=== PATIENT | male | born 1945 | race Asian ===

== ENCOUNTER 2020-07-22 11:39 | Day surgery (SDC) | payer OTHER ==
[2020-07-21 17:03] LABS: Absolute Lymphocytes (CBC) 1.4 K/uL (0.7-4.9); Basophils % 0.7 % (0-1.3); Hematocrit 41.4 % (39.6-49.0); Lymphocytes % 25.6 % (15.3-44.8); RBC Red Blood Cell Count 4.84 M/uL (4.33-5.43)
--- NOTE | 2020-07-21 17:07 | RAD REPORT ---
EXAM DESCRIPTION: RAD - Chest Pa And Lat (2 Views) - 07/21/2020 5:01 pm CLINICAL HISTORY: pre op Chest pain. COMPARISON: Chest Pa And Lat (2 Views) dated 08/15/2019; Chest Pa And Lat (2 Views) dated 07/15/2016; C hest Pa And Lat (2 Views) dated 04/26/2016; CHEST PA AND LAT 2 VIEW dated 11/20/2010 FINDINGS: Small calcified granuloma is seen in the left mid lung. The lungs are otherwise clear. The heart is normal in size. No displaced fractures. IMPRESSION: No acute or concerning finding suspected.
[2020-07-21 17:14] LABS: Potassium 4.7 mmol/L (3.5-5.1)
[2020-07-22] MEDS ORDERED: LIDOCAINE 2% MPF 5 ML VIAL ONE (12:04)
[2020-07-22] MEDS ORDERED: FENTANYL CITR 100 MCG/2 ML ONE (12:04)
[2020-07-22] MEDS ORDERED: propofoL 200 MG/20 ML VIAL IV ONE (12:04)
[2020-07-22] MEDS ORDERED: ONDANSETRON 4 MG/2 ML VIAL ONE (12:05)
[2020-07-22] MEDS ORDERED: Ringers Lactate 1,000 ML IV ONE (12:14)
[2020-07-22] MEDS ORDERED: CEFAZOLIN/SWI 1gm 1 GM/10 ML SYR ONE (12:14)
[2020-07-22] MEDS ORDERED: Phenylephrine HCl 10 MG/ML 1 ML VIAL ONE (13:27)
[2020-07-22] MEDS ORDERED: NS 0.9% VIAL 20 ML ONE (13:28)
[2020-07-22] MEDS ORDERED: KETOROLAC 30 MG/ML INJ ONE (13:52)
[2020-07-22 14:01] VITALS: O2SAT 100
--- NOTE | 2020-07-22 14:19 | P.BOP ---
Preoperative diagnosis: Perianal abscess, non healing wound Postoperative diagnosis: same Primary procedure: EUA, anoscopy, rigid proctoscopy, fistulectomy Secondary procedure: incision and drainage of perianal abscess Estimated blood loss: <10cc Specimen: fistula tract bx Findings: posterior fistula with abscess Anesthesia: General Complications: None Transferred to: Recovery Room Condition: Good
[2020-07-22] MEDS ORDERED: CODEINE 30MG/APAP 300MG TAB ONE (15:09)
[2020-07-22 15:54] VITALS: BP 128/57; TEMP 97
--- NOTE | 2020-07-23 05:55 | EKG ---
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
--- NOTE | 2020-07-28 10:42 | OP ---
Date of Procedure: 07/22/2020 Surgeon: Toño Jean Baptiste MD Preoperative Diagnoses: Perianal abscess, nonhealing wound in perianal region. Postoperative Diagnoses: Perianal abscess, nonhealing wound in perianal region. Procedures: Examination under anesthesia, anoscopy, rigid proctoscopy, fistulectomy, incision and dr makenzie of perianal abscess. Estimated Blood Loss: Less than 10 mL. Specimens: Fistula tract biopsy. Findings: Posterior fistula with abscess. Anesthesia: General plus local. Indications: This is the case of a male, who comes to us with tender perianal wound with abscess cav ity present. The etiology of that is unknown. He does not recall any trauma. The benefits, alterna tives, and risks of EUA, anoscopy, proctoscopy, incision and drainage of perianal abscess, possible f istulectomy were fully explained to the patient which include, but not limited to infection, bleeding , damage to adjacent structures, anesthesia complication, nonhealing wound, VA, and even . He a lso understands this may not relieve any symptoms. He might need more than one surgical intervention . He may require wound care. He signed the consent. Description Of Procedure: The patient was brought to the operating room and placed in supine positio n. Anesthesia was done without complication. The patient was placed in lithotomy position with prop er protection. A time-out was called. The area was prepped and draped in a sterile fashion. Once a gain, rectal examination was done followed by rigid proctoscopy all the way to about 13 cm. We notic ed the patient to have some perianal abscess. There is an open wound already there draining pus, lar ge cavity. We removed the proctoscope and with the anoscope, we were able to visualize that the trac t of this connecting to the mid rectum region away from the sphincter complex fistula. It is associa jo-ann with an abscess, difficult time to visualize the area completely due to the amount of pus, so we drained all the pus from that area, drained the perianal abscess and the fistula tract that go into t he rectum. We just carefully removed the fistula tract from that area. Pus sent for culture. This patient eventually may need another evaluation of that area once the inflammation and the abscess is gone to visualize the area a little bit better if residual fistula or anything else we have to do. I f we opened the fistula at this moment completely through the sphincter, most likely he is going to d evelop incontinence, so we have to take care of infection and remove the fistula tract and hopefully that gave us to a point that we can continue the workup on this patient. The patient tolerated the p rocedure well. The area was packed with dry dressing. The patient was sent to Recovery in stable co ndition. Disposition: Home. Plan: The patient will come to my office tomorrow for dressing changes. Medications: See orders. JOHN/MODL Voice ID: [id number] Report ID: [id number]
== END 2020-07-22 15:25 | disposition home or self-care (01) ==
LOC: OR 11:39
PROVIDERS: ATTEND Surgery
PROC: 0DJD8ZZ Inspection of Lower Intestinal Tract, Via Natural or Artificial Opening Endoscopic (ICD-10-PCS; 2020-07-22)
PROC: 0DBQ0ZZ Excision of Anus, Open Approach (ICD-10-PCS; 2020-07-22)
PROC: 0D9Q7ZX Drainage of Anus, Via Natural or Artificial Opening, Diagnostic (ICD-10-PCS; principal; 2020-07-22 12:30)
DX: K61.0 Anal abscess (principal); S31.839A Unspecified open wound of anus, initial encounter; I10 Essential (primary) hypertension; E78.5 Hyperlipidemia, unspecified; Z20.828 Contact with and (suspected) exposure to other viral communicable diseases
CPT/HCPCS: 93005; 85025; 80048; 36415; 88304; 71046; 46050; 45300; 46270; U0002; J2704; J2370; J3010; J0690; J7120; J2405; 88305

== ENCOUNTER 2021-09-21 10:29 | Inpatient (IN) | payer OTHER ==
[2021-09-21] MEDS ORDERED: ASPIRIN 81 MG CHEWABLE TABLET ONE (10:45)
[2021-09-21] MEDS ORDERED: HEPARIN/D5W 25,000 UNIT/500 ML BAG IV ONE (10:52)
[2021-09-21] MEDS ORDERED: HEPARIN 5000 UNIT/ML 1 ML VIAL ONE ×2 (10:59→13:19)
[2021-09-21 11:05] LABS: Absolute Lymphocytes (CBC) 1.5 K/uL (0.7-4.9); Basophils % 0.5 % (0-1.3); Hematocrit 40.8 % (39.6-49.0); Lymphocytes % 14.8 % (15.3-44.8); MPV 8.7 fL (7.6-11.3); RBC Red Blood Cell Count 4.81 M/uL (4.33-5.43)
[2021-09-21 11:06] LABS: Protime INR 1.03
[2021-09-21 11:23] LABS: Albumin 3.7 g/dL (3.4-5.0); Bilirubin Direct 0.1 mg/dL (0-0.2); Bilirubin Total 0.5 mg/dL (0.2-1.0); Magnesium 2.4 mg/dL (1.8-2.4); Potassium 4.5 mmol/L (3.5-5.1); Protein, Total 7.9 g/dL (6.4-8.2)
--- NOTE | 2021-09-21 11:34 | RAD REPORT ---
EXAM DESCRIPTION: RAD - Chest Single View - 09/21/2021 11:18 am CLINICAL HISTORY: CHEST PAIN COMPARISON: Chest Pa And Lat (2 Views) dated 07/21/2020; Chest Pa And Lat (2 Views) dated 08/15/2019; Chest Pa And Lat (2 Views) dated 07/15/2016; Chest Pa And Lat (2 Views) dated 04/26/2016 FINDINGS: Lines: None. Lungs: No evidence of edema or pneumonia. Pleural: No significant pleural effusions or pneumothorax. Cardiac: The heart size is within normal limits. Bones: No acute fractures. Other: IMPRESSION: No acute cardiopulmonary disease.
[2021-09-21 11:39] LABS: Troponin (Emerg Dept Use Only) 26.8 ng/mL (0.0-0.045)
[2021-09-21 12:03] LABS: Blood Morphology Comment NOT SEEN (NOT SEEN); Platelet Estimate ADEQ; White Blood Cell Scan OK (OK)
--- NOTE | 2021-09-21 12:07 | EDPHYS ---
Physician Documentation [facility] Name: Ihsan Lima Age: 76 yrs Sex: Male : 1945 Arrival Date: 09/21/2021 Time: 10:29 Bed 3 Private MD: Sd Snyder R ED Physician Du Eaton HPI: 09/21 12:01 This 76 yrs old Male presents to ER via Ambulatory with complaints of abn ekg. jr8 12:01 The patient or guardian reports chest pain that is located primarily in the substernal jr8 area, epigastric area. Onset: acutely, yesterday. The pain does not radiate. Associated signs and symptoms: The patient has no apparent associated signs or symptoms. The chest pain is described as burning, causing indigestion. Severity of pain: At its worst the pain was mild in the emergency department the pain has resolved. The patient has not experienced similar symptoms in the past. The patient has been recently seen by a physician:. This is a 76-year-old male patient that presented to the emergency room after seeing his primary care physician today for epigastric like indigestion with reflux sensation. Patient stated that it started yesterday and has now subsided since this morning. Called his PCP yesterday and worked him into the schedule this morning. EKG was done at that time showing inferior wall changes. Was sent to the emergency room for further evaluation at that time. Patient currently hemodynamically stable and without pain.. Historical: - Allergies: 10:38 No Known Allergies; tw2 - Home Meds: 10:38 Lipitor Oral [Active]; telmisartan oral [Active]; tw2 - PMHx: 10:38 Hypertensive disorder; Hypercholesterolemia; tw2 - Immunization history:: Client reports receiving the 2nd dose of the Covid vaccine. - Social history:: Smoking status: . ROS: 12:01 Eyes: Negative for injury, pain, redness, and discharge, ENT: Negative for injury, jr8 pain, and discharge, Neck: Negative for injury, pain, and swelling, Respiratory: Negative for shortness of breath, cough, wheezing, and pleuritic chest pain, Abdomen/GI: Negative for abdominal pain, nausea, vomiting, diarrhea, and constipation, Back: Negative for injury and pain, MS/Extremity: Negative for injury and deformity, Skin: Negative for injury, rash, and discoloration, Neuro: Negative for headache, weakness, numbness, tingling, and seizure. 12:01 Cardiovascular: Positive for chest pain, Negative for edema, orthopnea, palpitations, paroxysmal nocturnal dyspnea. Exam: 10:46 Constitutional: This is a well developed, well nourished patient who is awake, alert, jr8 and in no acute distress. Neck: Trachea midline, no thyromegaly or masses palpated, and no cervical lymphadenopathy. Supple, full range of motion without nuchal rigidity, or vertebral point tenderness. No Meningismus. Chest/axilla: Normal chest wall appearance and motion. Nontender with no deformity. No lesions are appreciated. Cardiovascular: Regular rate and rhythm with a normal S1 and S2. No gallops, murmurs, or rubs. Normal PMI, no JVD. No pulse deficits. Respiratory: Lungs have equal breath sounds bilaterally, clear to auscultation and percussion. No rales, rhonchi or wheezes noted. No increased work of breathing, no retractions or nasal flaring. Abdomen/GI: Soft, non-tender, with normal bowel sounds. No distension or tympany. No guarding or rebound. No evidence of tenderness throughout. Back: No spinal tenderness. No costovertebral tenderness. Full range of motion. Skin: Warm, dry with normal turgor. Normal color with no rashes, no lesions, and no evidence of cellulitis. MS/ Extremity: Pulses equal, no cyanosis. Neurovascular intact. Full, normal range of motion. Neuro: Awake and alert, GCS 15, oriented to person, place, time, and situation. Cranial nerves II-XII grossly intact. Motor strength 5/5 in all extremities. Sensory grossly intact. 10:46 ECG was reviewed by the Attending Physician. Vital Signs: 10:34 BP 142 / 71; Pulse 85; Resp 17; Temp 97.0(TE); Pulse Ox 100% on R/A; Weight 74.84 kg tw2 (R); 11:01 BP 123 / 66; Pulse 76; Resp 15; Pulse Ox 100% ; Weight 75.1 kg (M); jl7 11:30 BP 134 / 70; Pulse 78; Resp 18 S; Pulse Ox 100% on R/A; Pain 0/10; as6 12:08 BP 135 / 72; Pulse 86; Resp 20 S; Pulse Ox 100% on R/A; as6 12:41 BP 127 / 79; Pulse 83; Resp 17; Pulse Ox 99% ; jl7 MDM: 10:40 Patient medically screened. jr8 10:48 ED course: Call to cardiology placed at 1043. Cardiology in [place] [facility] at this time and jr8 pending callback.. 12:00 ED course: Will be going to [place] [facility] in approximately 45 minutes.. jr8 12:01 The patient was given aspirin in the Emergency Department. Data reviewed: vital signs, 8 nurses notes, lab test result(s), EKG, radiologic studies, plain films. Data interpreted: Pulse oximetry: on room air is 100 %. Interpretation: normal. Counseling: I had a detailed discussion with the patient and/or guardian regarding: the historical points, exam findings, and any diagnostic results supporting the discharge/admit diagnosis, lab results, radiology results, the need for further work-up and treatment in the hospital. 09/21 10:41 Order name: Basic Metabolic Panel; Complete Time: 12:06 09/21 10:41 Order name: CBC with Diff; Complete Time: 12:06 09/21 10:41 Order name: LFT's; Complete Time: 12:06 09/21 10:41 Order name: Magnesium; Complete Time: 12:06 09/21 10:41 Order name: NT PRO-BNP; Complete Time: 12:06 09/21 10:41 Order name: PT-INR; Complete Time: 11:21 09/21 10:41 Order name: Troponin (emerg Dept Use Only); Complete Time: 12:06 09/21 10:41 Order name: XRAY Chest (1 view); Complete Time: 11:34 09/21 10:41 Order name: EKG; Complete Time: 10:41 09/21 10:57 Order name: COVID-19 (Coronavirus) Document "Date of Onset" if Symptomatic jl7 09/21 12:03 Order name: CBC Smear Scan EDKY 09/21 10:41 Order name: Cardiac monitoring; Complete Time: 10:56 09/21 10:41 Order name: EKG - Nurse/Tech; Complete Time: 10:56 09/21 10:41 Order name: IV Saline Lock; Complete Time: 10:09/21 10:41 Order name: Labs collected and sent; Complete Time: 09/21 10:41 Order name: O2 Per Protocol; Complete Time: :09/21 10:41 Order name: O2 Sat Monitoring; Complete Time: :09/21 12:29 Order name: CONS Physician Consult EDMS EC:46 Rate is 84 beats/min. Rhythm is regular, Normal Sinus Rhythm. QRS [place] is Normal. [place] jr8 interval is prolonged at 208 msec. QRS interval is normal at 86 msec. QT interval is normal at 380 msec. Q waves are Present. Q waves are New in leads III, aVF. T waves are Normal. ST Segment is elevated in leads III, aVF. Clinical impression: Inferior AL - acute. Interpreted by me. Reviewed by me. Administered Medications: 10:47 Drug: Aspirin Chewable Tablet 243 mg Route: PO; as6 11:47 Follow up: Response: No adverse reaction as6 11:04 Drug: Heparin (AL-Bolus No thrombolytic) - HEParin 60 units/kg {Co-Signature: jcarolyn as6 (Patrick Mcdonald RN).} Route: IVP; Site: left wrist; 12:04 Follow up: Response: No adverse reaction as6 11:04 Drug: Heparin ([place] Drip) 12 units/kg/hr - (HEParin 52373 units, D5W 500 ml) as6 {Co-Signature: jd3 (Patrick Mcdonald RN).} Route: IV; Rate: calculated rate; Site: left wrist; 12:19 Follow up: IV Pause: 09/21/2021 12:19; IV Pause Reason: Limited IV access/Medication as6 interaction; infusion paused due to pt about to go to [employer] [place] Disposition: 12:10 Critical Care:. 8 15:24 Co-signature as Attending Physician, Du Eaton MD I agree with the assessment and rn plan of care. 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 HPI: 76 year old male presents with heart burn and sent by PCP for possible AL. Reports heartburn on and off for sometime, but not worse with exertion or climbing stairs. My personal exam of patient reveals: calm, no acute distress, no cyanosis, RRR I agree with assessment and care plan and confirm the diagnosis (es) above. Disposition Summary: 09/21/21 12:06 Hospitalization Ordered Hospitalization Status: Inpatient Admission jr8 Location: Telemetry/[facility] (Inpatient) jr8 Condition: Stable jr8 Problem: new jr8 Symptoms: are unchanged jr8 Bed/Room Type: Standard 8 Room Assignment: 8 Provider: Dominik Eaton(09/21/21 12:06) jr8 Diagnosis - ST elevation (STEMI) myocardial infarction of inferior wall jr8 Forms: - Medication Reconciliation Form jr8 - SBAR form jr8 Critical care time excluding procedures: 12:10 Critical care time: Bedside Care: 20 minutes, Consultation: 10 minutes, Family jr8 Intervention: 10 minutes. Total time: 40 minutes Signatures: Dispatcher [employer] EDMS Du Eaton MD MD rn Roszak, Josh, PA PA jr8 Kristen Spencer RN RN tw2 Mohan Charles RN RN as6 Patrick Mcdonald RN jd3 Corrections: (The following items were deleted from the chart) 12:06 12:06 Tiara De Leon jr8 jr8
--- NOTE | 2021-09-21 12:07 | ER ---
Nurse's Notes [facility] Name: Ihsan Lima Age: 76 yrs Sex: Male : 1945 Arrival Date: 09/21/2021 Time: 10:29 Bed 3 Private MD: Sd Snyder R Diagnosis: ST elevation (STEMI) myocardial infarction of inferior wall Presentation: 09/21 10:34 Initial Sepsis Screen: Does the patient meet any 2 criteria? No. Patient's initial tw2 sepsis screen is negative. Does the patient have a suspected source of infection? No. Patient's initial sepsis screen is negative. Risk Assessment: Do you want to hurt yourself or someone else? Patient reports no desire to harm self or others. Note provider IZABEL Linares at bedside at this time. Onset of symptoms was September 21, 2021. 10:34 Acuity: DOMINIC 2 tw2 10:36 Chief complaint: Patient states: Dr. Snyder sent me over here because I had an abnormal tw2 EKG. i was having heartburn for a couple of weeks. no pain now. Dr. Snyder wants to verify if I did have a heart attack or not. Coronavirus screen: At this time, the client does not indicate any symptoms associated with coronavirus-19. Ebola Screen: Patient denies travel to an Ebola-affected area in the 21 days before illness onset. 10:36 Method Of Arrival: Ambulatory tw2 Triage Assessment: 10:34 General: Appears in no apparent distress. slender, well groomed, Behavior is calm, tw2 cooperative, appropriate for age. Pain: Denies pain. Historical: - Allergies: 10:38 No Known Allergies; tw2 - Home Meds: 10:38 Lipitor Oral [Active]; telmisartan oral [Active]; tw2 - PMHx: 10:38 Hypertensive disorder; Hypercholesterolemia; tw2 - Immunization history:: Client reports receiving the 2nd dose of the Covid vaccine. - Social history:: Smoking status: . Screenin:34 Abuse screen: Denies threats or abuse. Nutritional screening: No deficits noted. tw2 Tuberculosis screening: No symptoms or risk factors identified. Fall Risk None identified. Assessment: 10:35 Reassessment: IZABEL Brown at bedside. jl7 10:45 Reassessment: Dr. Eaton at bedside discussing EKG result and POC. jl7 11:00 General: Appears in no apparent distress. comfortable, Behavior is calm, cooperative. as6 Pain: Denies pain. Neuro: Level of Consciousness is awake, alert, obeys commands, Oriented to person, place, time, situation. Cardiovascular: Capillary refill < 3 seconds Patient's skin is warm and dry. Rhythm is irregular noted ST elevation, provided notified. Respiratory: Airway is patent Respiratory effort is even, unlabored, Respiratory pattern is regular, symmetrical, Breath sounds are clear bilaterally. Derm: Skin is intact, is healthy with good turgor. 12:09 Reassessment: pt and educated on procedure done by IZABEL Brown. as6 Vital Signs: 10:34 BP 142 / 71; Pulse 85; Resp 17; Temp 97.0(TE); Pulse Ox 100% on R/A; Weight 74.84 kg tw2 (R); 11:01 BP 123 / 66; Pulse 76; Resp 15; Pulse Ox 100% ; Weight 75.1 kg (M); jl7 11:30 BP 134 / 70; Pulse 78; Resp 18 S; Pulse Ox 100% on R/A; Pain 0/10; as6 12:08 BP 135 / 72; Pulse 86; Resp 20 S; Pulse Ox 100% on R/A; as6 12:41 BP 127 / 79; Pulse 83; Resp 17; Pulse Ox 99% ; jl7 ED Course: 10:29 Patient arrived in ED. as 10:30 Sd Snyder MD is Private Physician. as 10:33 EKG done, by ED staff, reviewed by Du Eaton MD. mh5 10:34 Patient has correct armband on for positive identification. Placed in gown. Bed in low mh5 position. Call light in reach. Side rails up X 1. Side rails up X2. Warm blanket given. monitoring and evaluation advisor on. Pulse ox on. NIBP on. 10:34 Arm band placed on. tw2 10:38 Triage completed. tw2 10:40 Kevin Richmond PA is PHCP. jr8 10:40 Du Eaton MD is Attending Physician. jr8 10:50 Inserted saline lock: 20 gauge in right wrist, using aseptic technique. jl7 10:55 Initial lab(s) drawn, by nv, sent to lab. Inserted saline lock: 22 gauge in left jl7 forearm, using aseptic technique. Blood collected. 11:00 Mohan Charles, JONNY is Primary Nurse. jl7 11:18 XRAY Chest (1 view) In Process Unspecified. EDMS 12:03 Tiara De Leon MD is Hospitalizing Provider. jr8 12:06 Dominik Eaton MD is Hospitalizing Provider. jr8 13:07 No provider procedures requiring assistance completed. Patient admitted, IV remains in jl7 place. intact, No redness/swelling at site. Administered Medications: 10:47 Drug: Aspirin Chewable Tablet 243 mg Route: PO; as6 11:47 Follow up: Response: No adverse reaction as6 11:04 Drug: Heparin (AK-Bolus No thrombolytic) - HEParin 60 units/kg {Co-Signature: thu as6 (Patrick Mcdonald RN).} Route: IVP; Site: left wrist; 12:04 Follow up: Response: No adverse reaction as6 11:04 Drug: Heparin ([place] Drip) 12 units/kg/hr - (HEParin 75686 units, D5W 500 ml) as6 {Co-Signature: thu (Patrick Mcdonald RN).} Route: IV; Rate: calculated rate; Site: left wrist; 12:19 Follow up: IV Pause: 09/21/2021 12:19; IV Pause Reason: Limited IV access/Medication as6 interaction; 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 jr8 13:07 Admitted to [employer] accompanied by nurse, family with patient, via stretcher, on jl7 monitor, with chart, Other Bedside report given to JONNY [place] 13:07 Condition: stable 13:07 Discharge instructions given to patient, family, Instructed on the need for admit, Demonstrated understanding of instructions. 13:11 Patient left the ED. jl7 Signatures: Dispatcher [employer] EDMS Le Jean Baptiste Josh, PA PA jr8 Kristen Spencer, RN RN tw2 Sydney Jean Baptiste [facility] Alonzo De La Paz RN RN jl7 Mohan Charles, JONNY FULLER as6 Patrick Mcdonald RN jd3
--- NOTE | 2021-09-21 12:36 | P.HP ---
Certification for Inpatient Patient admitted to: Inpatient With expected LOS: >2 Midnights Practitioner: I am a practitioner with admitting privileges, knowledge of patient current condition, hospital course, and medical plan of care. Services: Services provided to patient in accordance with Admission requirements found in Title 42 Section 412.3 of the Code of Federal Regulations Patient History Date of Service: 09/21/21 Primary Care Provider: Lillian Reason for admission: STEMI History of Present Illness: 76yo M, PMH: HTN, HLD, constipation Sent to the ED by his PCP due to concern for [place]. Patient reports progressively worsening heartburn over the last 2 months. This became much more severe 2 days ago, and he was having difficulty sleeping due to the discomfort. Nothing seemed to alleviate or worsen the pain. He saw his PCP today, was noted to have some q waves and mild ST elevation in inferior leads. In the ED, lab work seem to be at patient's baseline, and he was noted to have elevated troponin 20s. Cardiology was consulted by the ER, plan to take patient for cardiac catheterization WHITNEY. He has otherwise been unable to take Prilosec yesterday and had some sweating. He otherwise denies any fever, no nausea/vomiting, no abdominal pain, no diarrhea/constipation, no change in urinary habits, no numbness/tingling. Allergies No Known Allergies Allergy (Unverified 07/21/20 16:22) Home Medications: Aspirin 81 mg PO DAILY 07/21/20 Atorvastatin Calcium [Lipitor] 10 mg PO DAILY 07/21/20 Telmisartan [Micardis] 40 mg PO DAILY 07/21/20 Ciprofloxacin HCl [Cipro 500 MG Tablet] 500 mg PO BID #14 tab 07/22/20 Codeine/APAP [Tylenol W/Codeine #3 tab] 1 tab PO Q4HP PRN #30 tab 07/22/20 - Past Medical/Surgical History Diabetic: No -: Hypertension -: Hyperlipidemia -: Constipation -: Anal fistula repair - Family History Father -: Stroke - Social History Smoking Status: Never smoker Alcohol use: Yes Place of Residence: Home Review of Systems 10-point ROS is otherwise unremarkable Physical Examination - Physical Exam General: Alert, In no apparent distress, Oriented x3 HEENT: PERRLA, Mucous membr. moist/pink, EOMI, Sclerae nonicteric Neck: Supple, No LAD Respiratory: Clear to auscultation bilaterally, Normal air movement Cardiovascular: No edema, Regular rate/rhythm Gastrointestinal: Soft and benign, Non-distended, No tenderness Musculoskeletal: No erythema, No tenderness Integumentary: No significant lesion Neurological: Normal speech, Normal strength at 5/5 x4 extr, Normal affect - Studies Laboratory Data (last 24 hrs) 09/21/21 10:53: PT 11.9, INR 1.03 09/21/21 10:53: WBC 10.40, Hgb 13.4 L, Hct 40.8, Plt Count 235 09/21/21 10:53: Sodium 139, Potassium 4.5, BUN 11, Creatinine 1.32 H, Glucose 114 H, Magnesium 2.4, Total Bilirubin 0.5, AST 191 H, ALT 57, Alkaline Phosphatase 96 Assessment and Plan - Advance Directives Does patient have a Living Will: No Does patient have a Durable POA for Healthcare: No Physician Review Additional Text: Problem list STEMI Hypertension Hyperlipidemia Functional constipation -EKG with inferior wall ischemic changes, q waves and mild ST elevation in inferior leads -cardiology consulted in ED, received aspirin and started heparin drip -patient to go to cardiac cath within the hour -statin ordered -repeat BMP in AM, monitor renal function -consult nephrology due to renal function and undergoing cardiac cath -f/u cath results / further cardiology recommendations VTE: heparin ggt Code: full Dispo: cardiac cath today, anticipate dc home in 1-2 days Time Spent Managing Pts Care (In Minutes): 60
[2021-09-21] MEDS ORDERED: HEPA 1000U/500MLS 2,000 UNIT/1,000 ML BAG IV ONE (12:54)
[2021-09-21] MEDS ORDERED: HEPARIN/D5W 25,000 UNIT/500 ML BAG IV SCH (13:00)
[2021-09-21] MEDS ORDERED: VERAPAMIL HCL 10 MG/4 ML VIAL IV ONE (13:18)
[2021-09-21] MEDS ORDERED: FENTANYL CITR 100 MCG/2 ML ONE (13:18)
[2021-09-21] MEDS ORDERED: MIDAZOLAM HCL 2 MG/2 ML INJ ONE (13:18)
[2021-09-21] MEDS ORDERED: ATROPINE SULF 1 MG/10 ML SYR IV ONE (13:19)
[2021-09-21] MEDS ORDERED: NA CHLORIDE 0.9% 500 ML ONE (13:20)
[2021-09-21] MEDS ORDERED: NITROGLYCERIN 100 MCG/ML SYR (for cath lab use only) IV ONE (13:20)
[2021-09-21] MEDS ORDERED: TICAGRELOR 90 MG TABLET PO ONE (13:40)
[2021-09-21] MEDS ORDERED: HEPA 1000U/500MLS 1,000 UNIT/500 ML BAG IV ONE (13:49)
[2021-09-21] MEDS ORDERED: ONDANSETRON 4 MG/2 ML VIAL IV PRN (16:08)
--- NOTE | 2021-09-21 20:31 | CON ---
Date of Consultation: 09/21/2021 Reason For Consultation: Elevated troponin and chest pain. History Of Present Illness: This is a 76-year-old male with history of hypertension, dyslipidemia, p resented with heartburn sensation started yesterday. He called his primary care physician, asked him to come to the emergency room. He came in this morning and found to have ST elevation in inferior l farshad plus Q-waves and the troponin was 26. The patient was chest pain free. The patient was rushed into the cardiac catheterization laboratory for emergent coronary angiogram. Past Medical History: As outlined above in the HPI. Hypertension, dyslipidemia. Medications: Refer reconciliation sheet for detailed list. Allergies: NO KNOWN DRUG ALLERGIES. Family History: No premature coronary artery disease or cancer. Social History: Does not smoke or drink. Does not use any drugs. Review of Systems: All systems reviewed and they were negative except as mentioned in the HPI. Physical Examination: Vital Signs: Reviewed. Head and Neck: Pupils are equal, reactive to light. Intact eye movements. No JVD. No cervical lym phadenopathy. Neck: Supple. Thyroid is not enlarged. Lungs: Clear to auscultation bilaterally. No rhonchi, rales, or crackles. No accessory muscle use. Heart: Regular rate and rhythm. No extra sounds. Abdomen: Soft and nontender. Bowel sounds positive. No organomegaly. No masses or hernia. No rig idity or rebound. Extremities: No edema, clubbing, or cyanosis. Intact pulses. Skin: No rashes. Neurologic: Alert, awake, and oriented x3. No acute focal deficits appreciated. Investigations: Labs reviewed. Assessment And Recommendations: Acute [id number] myocardial infarction with troponin of 26. T he patient is symptoms free at this point and was loaded with aspirin and heparin. We will reverse i nto the cardiac catheterization laboratory for emergent coronary angiogram. Thank you for the consult. /HAI Voice ID: [id number] Report ID: [id number]
[2021-09-21] MEDS ORDERED: ATORVASTATIN 40 MG TAB PO SCH (21:00)
[2021-09-21] MEDS ORDERED: ACETAMINOPHEN 325 MG TABLET PO PRN ×2 (21:24→23:17)
[2021-09-21 22:57] VITALS: BMI 24.4
[2021-09-21] MEDS ORDERED: NITROGLYCERIN 0.4 MG/TAB SL PRN (23:24)
--- NOTE | 2021-09-22 02:32 | OP ---
Date of Procedure: 09/21/2021 Surgeon: HERBERTH HECK Procedure Performed: 1.Selective coronary angiogram. 2.Intravascular ultrasound of left main and left anterior descending artery. 3.Percutaneous coronary intervention of critical proximal left anterior descending artery stenosis w hich is the culprit of the myocardial infarction using a 4.0 x 60 mm Synergy drug-eluting stent. Complications: None. Bleeding: Less than 50 mL. Access: Radial artery 6-Czech, closed with TR band. Complications: None. Description Of Procedure: After risks, benefits, and alternatives were explained, the patient to pro cedure and signed the informed consent. The patient was brought to the cardiac catheterization labor atory, prepped and draped in usual sterile fashion. Then, I accessed the right radial artery using p iatric micropuncture kit, placed 6-Czech slender sheath, took a 5-Czech Willards 4 catheter, engaged left main, the right coronary artery, took standard views and removed the catheter and moved to inte rventional part. Intervention Details: We gave systemic heparin to assure ACT level above 250, then gave 180 mg of Br ilinta. The patient was already loaded with Plavix. Then, I took a 6-Czech XB LAD 3.5 guide into t he aortic root, engaged left main, took a short run-through wire into the left main and then the LAD and ballooned the proximal LAD. Already, there was some flow, however, was sluggish and after balloo caro, the flow improved. Took IVUS catheter into the left main and the LAD and then properly evaluat ed the vessel. Inside the vessel, the size appears to be aneurysmal and then took a 4.0 x 60 mm Syne rgy drug-eluting stent across the area of stenosis and the stent was deployed successfully. Took the IVUS catheter again and the stent appeared to be well apposed and with no complications and CHERYL-3 f low and 0% residual stenosis. We removed the wire and the catheter. Final angiogram was satisfactor y. Removed the sheath, placed TR band, good hemostasis. Findings: 1.Left main was normal. 2.LAD proximal 99% stenosis and then becomes aneurysmal vessel and then normal after that, status po st successful PCI of proximal LAD using 4.0 x 16 mm drug-eluting stent. All diagonal branch appears normal. 3.Left circumflex is normal. 4.RCA has proximal FELT HOOKER with very good collaterals coming from the LAD that fills all the way to the PLB and PDA, all the way to the mid RCA. Conclusion: 1.Critical proximal LAD stenosis is the culprit of the DE, status post successful PCI as above. LAD gives collaterals to the chronically occluded RCA. 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 Recommendation: Continue aspirin and Brilinta for now, and in about a month, I would switch him to P lavix and Eliquis. This patient needs to be on lifelong anticoagulation due to the presence of the c oronary artery aneurysms. Admit overnight, started on low-dose beta jamar and VICTOR MANUEL inhibitor, and w e will obtain an echocardiogram. SR/MODL Voice ID: [id number] Report ID: [id number]
[2021-09-22 05:41] LABS: Absolute Lymphocytes (CBC) 1.5 K/uL (0.7-4.9); Basophils % 0.3 % (0-1.3); Hematocrit 37.3 % (39.6-49.0); RBC Red Blood Cell Count 4.39 M/uL (4.33-5.43)
[2021-09-22 06:00] LABS: Albumin 3.1 g/dL (3.4-5.0); Bilirubin Total 1.1 mg/dL (0.2-1.0); Magnesium 2.4 mg/dL (1.8-2.4); Potassium 4.2 mmol/L (3.5-5.1); Protein, Total 6.7 g/dL (6.4-8.2)
[2021-09-22] MEDS ORDERED: METOPROLOL TAR 25 MG TAB PO SCH (06:00)
--- NOTE | 2021-09-22 07:34 | RAD REPORT ---
EXAM DESCRIPTION: US - Renal Ultrasound-Complete - 09/22/2021 12:30 am CLINICAL HISTORY: Acute renal failure/chronic renal disease COMPARISON: None. FINDINGS: The right kidney measures 8 cm with an increased echotexture. The left kidney measures 9 cm with an increased echotexture. Hydronephrosis is not seen. No gross abnormality of bladder is seen IMPRESSION: Mildly increased renal echotexture consistent with parenchymal disease No hydronephrosis
[2021-09-22 07:57] LABS: Urine Appearance Clear (Clear); Urine Bilirubin Negative (Negative); Urine Blood Trace-intact (Negative); Urine Color Yellow (Yellow); Urine Glucose Negative (Negative); Urine Protein Negative (Negative); Urine Specific Gravity 1.015 (1.005-1.030); Urine Urobilinogen 0.2 mg/dL (0.2-1.0)
[2021-09-22 08:04] LABS: Urine Microscopic Reflex ORDER UMIC
[2021-09-22 08:54] VITALS: BP 104/56; TEMP 98.1
[2021-09-22] MEDS ORDERED: TICAGRELOR 90 MG TABLET PO SCH (09:00)
[2021-09-22] MEDS ORDERED: ASPIRIN EC 81 MG TAB PO SCH (09:00)
[2021-09-22 09:02] LABS: Urine Bacteria <20 /HPF (NONE SEEN); Urine RBC <5 /HPF (NONE SEEN)
[2021-09-22 10:11] VITALS: O2SAT 97
--- NOTE | 2021-09-22 10:52 | P.DS ---
Admission Date: 09/21/21 Discharge Date: 09/22/21 Primary Care Provider: Lillian Disposition: DC HOME/HOME HEALTH CARE Discharge Condition: FAIR Reason for Admission: STEMI Consultations: CardiologyDr. Torres. - Problems (1) STEMI (ST elevation myocardial infarction) Status: Acute (2) CAD (coronary artery disease) Status: Acute Brief History of Present Illness: 76yo M, PMH: HTN, HLD, constipation Sent to the ED by his PCP due to concern for NC. Patient reported progressively worsening heartburn over 2 months. This became much more severe 2 days prior to presentation, and he was having difficulty sleeping due to the discomfort. Nothing seemed to alleviate or worsen the pain. He saw his PCP today, was noted to have some q waves and mild ST elevation in inferior leads. In the ED, lab work seem to be at patient's baseline, and he was noted to have elevated troponin 20s. Cardiology was consulted by the ER, who recommended emergent cardiac catheterization WHITNEY. Patient admitted for further management. Hospital Course: Discharge diagnosis STEMI Hypertension Hyperlipidemia Patient taken to cardiac catheterization and found to have 99% occlusion of the LAD which was stented. He was placed on Brilinta and aspirin and Lipitor. Patient monitored overnight after cardiac catheterization. He was stable without any symptoms. No chest pain. He is cleared by cardiology for discharge. Patient is discharged. Brilinta aspirin and Lipitor. He will follow with Dr. Torres in 1 week. Vital Signs/Physical Exam: Temp Pulse Resp BP Pulse Ox 98.1 F 72 16 104/56 L 99 09/22/21 08:00 09/22/21 08:00 09/22/21 08:00 09/22/21 08:00 09/22/21 08:00 General: Alert, In no apparent distress, Oriented x3 HEENT: Mucous membr. moist/pink Neck: Supple, JVD not distended Respiratory: Clear to auscultation bilaterally, Normal air movement Cardiovascular: Regular rate/rhythm, Normal S1 S2 Gastrointestinal: Normal bowel sounds, Soft and benign, Non-distended, No tenderness Musculoskeletal: No swelling Integumentary: No rashes Neurological: Normal strength at 5/5 x4 extr Laboratory Data at Discharge: WBC 10.20 K/uL (4.3-10.9) 09/22/21 05:13 Hgb 12.3 g/dL (13.6-17.9) L 11/16/21 05:13 Hct 37.3 % (39.6-49.0) L 09/22/21 05:13 Plt Count 211 K/uL (152-406) 09/22/21 05:13 PT 11.9 SECONDS (9.5-12.5) 09/21/21 10:53 INR 1.03 09/21/21 10:53 Sodium 141 mmol/L (136-145) 09/22/21 05:13 Potassium 4.2 mmol/L (3.5-5.1) 09/22/21 05:13 BUN 13 mg/dL (7-18) 09/22/21 05:13 Creatinine 1.27 mg/dL (0.55-1.3) 09/22/21 05:13 Glucose 104 mg/dL (74-106) 09/22/21 05:13 Magnesium 2.4 mg/dL (1.8-2.4) 09/22/21 05:13 Total Bilirubin 1.1 mg/dL (0.2-1.0) H 09/22/21 05:13 AST 119 U/L (15-37) H 09/22/21 05:13 ALT 45 U/L (12-78) 09/22/21 05:13 Alkaline Phosphatase 73 U/L (45-117) 09/22/21 05:13 Triglycerides 103 mg/dL (<150) 09/22/21 05:13 Cholesterol 133 mg/dL (<200) 09/22/21 05:13 HDL Cholesterol 53 mg/dL (40-60) 09/22/21 05:13 Cholesterol/HDL Ratio 2.51 09/22/21 05:13 Home Medications: Telmisartan [Micardis] 40 mg PO DAILY 07/21/20 Aspirin [Aspirin EC] 81 mg PO DAILY 09/21/21 Atorvastatin Calcium [Lipitor] 80 mg PO BEDTIME #30 tablet 09/21/21 Polyethylene Glycol 3350 [Miralax] 17 gm PO DAILY 09/21/21 Ticagrelor [Brilinta] 90 mg PO Q12H #60 tablet 09/21/21 New Medications: Ticagrelor [Brilinta] 90 mg PO Q12H #60 tablet Atorvastatin Calcium [Lipitor] 80 mg PO BEDTIME #30 tablet Physician Discharge Instructions: -No Heavy lifting >5 pounds for the next 5 days. -Keep site clean and dry for 24 hours. Do not submerge under water for 5 days(no washing dishes, taking baths, hot tubs/pools, etc...) You may shower after 24 hours. -If minor oozing, may apply Band-Aid to site during the day and remove at night. -If bleeding occurs, sit down and hold pressure with your thumb and call 911 for immediate help if bleeding or swelling does not stop. Call the doctor for: -signs of infection:redness that spreads outward from the insertion site, are is warmer than surrounding tissue, pus or drainage, increased tenderness or severe swelling or bruising. -involved extremity becomes swollen, painful, cool to touch, discolored or numb. -Temperature >101 -Chest pain or pressure, shortness of breath, dizziness, nausea or vomiting. -Return to work or any other questions regarding your cardiology care. Once discharged call on the next working day for a two week follow up with your doctor. Diet: AHA Activity: Ad adalberto Followup: Sd Snyder MD [Primary Care Provider] - Elie Torres MD [ACTIVE - CAN ADMIT] - (Follow up in 2 weeks) Time spent managing pt's care (in minutes): 37
--- NOTE | 2021-09-22 16:55 | EKG ---
Test Date: 2021-09-21 Test Time: 10:37:49 Window Machine Operator: LIAT MEASUREMENT RESULTS: Intervals: Rate: 84 MT: 208 QRSD: 86 QT: 322 QTc: 380 [place]: P: 66 MT: 208 QRS: 36 T: 51 INTERPRETIVE STATEMENTS: Normal sinus rhythm Inferior infarct, possibly acute ACUTE PR Consider right ventricular involvement in acute inferior infarct Abnormal ECG Compared to ECG 07/21/2020 16:28:46 Myocardial infarct finding now present Electronically Signed On 09-22-21 16:51:27 KICKBOXING INSTRUCTOR by Aly Cintron
--- NOTE | 2021-09-28 09:11 | PN ---
Date of Progress Note: 09/22/2021 Mr. Lima is 76 years old. He was sent from office to the emergency room because of ch est pain, underwent an emergency heart catheterization by Dr. Torres for acute FL. 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 He had a 99% LAD with collaterals to the RCA, PDA. He underwent successful stent on 09/21/2021. Overnight, he did very well. His right wrist was int act. He had good pulse in the radial artery. He had no complaint overnight. Telemetry was normal. His vital signs were stable. His examination did not show any arrhythmias or pedal edema. He shoul d go home today on aspirin, statin, beta-jamar, Brilinta, and he will see Dr. Torres in the next we ek or 2. VICKEY/HAI Voice ID: [id number] Report ID: [id number]
== END 2021-09-22 11:24 | disposition home or self-care (01) | DRG 247 ==
LOC: ER 10:29 → ERHOLD 12:28 → 2ND 18:15
PROVIDERS: ADMIT Hospitalist; ATTEND Hospitalist
PROC: 027034Z Dilation of Coronary Artery, One Artery with Drug-eluting Intraluminal Device, Percutaneous Approach (ICD-10-PCS; principal; 2021-09-21)
PROC: B241ZZ3 Ultrasonography of Multiple Coronary Arteries, Intravascular (ICD-10-PCS; 2021-09-21)
PROC: B201YZZ Plain Radiography of Multiple Coronary Arteries using Other Contrast (ICD-10-PCS; 2021-09-21)
DX: I21.4 Non-ST elevation (NSTEMI) myocardial infarction (principal); I25.82 Chronic total occlusion of coronary artery; I25.10 Atherosclerotic heart disease of native coronary artery without angina pectoris; I25.41 Coronary artery aneurysm; I10 Essential (primary) hypertension; E78.5 Hyperlipidemia, unspecified; K59.04 Chronic idiopathic constipation; Z20.822 Contact with and (suspected) exposure to COVID-19
CPT/HCPCS: 36415; 71045; 76770; 80048; 80053; 80061; 80076; 81003; 81015; 82947; 83735; 83880; 84484; 85025; 85347; 85610; 93005; 93458; 94760; 96365; 99285; C1725; C1893; C9600; J1644; J2250; J3010; J7040; U0003